=== PATIENT | male | born 1990 | race Two or more races ===

== ENCOUNTER 2019-05-19 23:06 | Emergency (ER) | payer BC ==
[~2019-05-19] VITALS: Ht 180.3 cm; Wt 79.4 kg
[2019-05-19 23:24] VITALS: BP 102/72
--- NOTE | 2019-05-19 23:24 | NUR ---
ED Nurse Note: Patient walked in to ER due to S/P fall. As per patient, he was playing basketball and hit his head really hard. No injury reported. no stated medical history. Alert and oriented x4, verbally responsive. Afebrile. Breathing even and unlabored. VSS. S/O at bedside.
--- NOTE | 2019-05-19 23:45 | NUR ---
ED Nurse Note: Went down for CT.
--- NOTE | 2019-05-20 00:01 | NUR ---
ED Nurse Note: Came back from CT.
--- NOTE | 2019-05-20 00:02 | Emergency Room Report ---
History of Present Illness General Chief Complaint: Multiple Trauma/Fall Source: Patient Present Illness HPI This is a 28-year-old male with no past medical history. He presents with chief complaint of head injury. He was playing basketball around 9:30 tonight. He said he fell and hit his head. He had no symptom and got up and continue playing. His friend said that right afterward he made a big shot but he said he does not remember anything about it. He has some tenderness to the left parietal area. No swelling. No nausea no vomiting. No fever chills but no dizziness. Came into be evaluated. Allergies: Coded Allergies: No Known Allergies (Unverified , 05/19/19) Patient History Past Medical History: see triage record, old chart reviewed Past Surgical History: none Pertinent Family History: none Social History: Denies: smoking Immunizations: other Reviewed Nursing Documentation: PMH: Agreed; PSxH: Agreed Nursing Documentation-PMH Past Medical History: No Stated History Review of Systems Eye: Denies: eye pain, blurred vision ENT: Denies: ear pain, nose congestion, throat swelling Respiratory: Denies: cough, shortness of breath Cardiovascular: Denies: chest pain, palpitations Gastrointestinal: Denies: abdominal pain, diarrhea, nausea, vomiting Musculoskeletal: Denies: back pain, joint pain Skin: Denies: rash Neurological: Denies: headache, numbness Endocrine: Denies: increased thirst, increased urine Hematologic/Lymphatic: Denies: easy bruising All Other Systems: negative except mentioned in HPI Physical Exam Vital Signs Date Time Temp Pulse Resp B/P (MAP) Pulse Ox O2 Delivery O2 Flow Rate FiO2 05/19/19 23:22 98.4 67 18 102/72 (82) 95 Room Air vitals normal Sp02 EP Interpretation: reviewed, normal General Appearance: well appearing, no apparent distress, alert Head: normocephalic, atraumatic Eyes: bilateral eye PERRL, bilateral eye EOMI ENT: hearing grossly normal, normal pharynx Neck: full range of motion, supple, no meningismus Respiratory: chest non-tender, lungs clear, normal breath sounds Cardiovascular #1: regular rate, rhythm, no murmur Gastrointestinal: normal bowel sounds, non tender, no mass, no organomegaly, no bruit, non-distended Musculoskeletal: back normal, gait/station normal, normal range of motion Psychiatric: mood/affect normal Medical Decision Making Diagnostic Impression: Primary Impression: Head injury, acute Qualified Codes: S09.90XA - Unspecified injury of head, initial encounter Additional Impression: Concussion Qualified Codes: S06.0X0A - Concussion without loss of consciousness, initial encounter ER Course Patient presents with symptoms consistent with concussion after head injury. He is asymptomatic right now. Will discharge home with concussion precaution. CT/MRI/US Diagnostic Results CT/MRI/US Diagnostic Results : Imaging Test Ordered: CT head Impression Negative per radiologist Last Vital Signs Date Time Temp Pulse Resp B/P (MAP) Pulse Ox O2 Delivery O2 Flow Rate FiO2 05/19/19 23:24 67 18 Room Air 05/19/19 23:24 98.4 102/72 95 Status: improved Disposition: HOME, SELF-CARE Condition: Stable Additional Instructions: No basketball or strenuous activity for a week. You can return to play and if you have no symptoms. Follow-up with your doctor in 7 days. Return if worse. Lawrence La MD May 20, 2019 00:02
[2019-05-20 00:12] VITALS: BP 102/72
--- NOTE | 2019-05-20 00:12 | NUR ---
ED Nurse Note: Pt cleared by ERMD for discharge. DC instructions was given and explained to pt and verbalized understanding of teachings. All medical deviecs such as ID band removed. Pt is AAO x4, ambulatory and left with all personal belongings.
--- NOTE | 2019-05-20 00:32 | Diagnostic Imaging Report ---
Indications: Head trauma Technique: Spiral acquisitions obtained through the brain. Angled axial and coronal 5 x 5 mm slices were reconstructed. Total dose length product 1379.6 mGycm. CTDI vol(s) 70.38 mGy. Dose reduction achieved using automated exposure control Comparison: None. Findings: Prominent extra-axial CSF is seen in the posterior aspect of the posterior fossa, particularly on the left. There is slight scalloping of the inner table of the underlying calvarium. No acute intracranial hemorrhage or edema, mass effect, nor midline shift. Anderson-white differentiation is normal. The ventricles and extra axial CSF spaces are otherwise unremarkable. The mastoids are clear. The sinuses are clear. The orbits are unremarkable. The calvarium is intact. Impression: Negative for acute intracranial bleed or mass effect Prominent extra-axial CSF in the posterior fossa. 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 This agrees with the preliminary interpretation provided overnight by [facility] service. The CT scanner at [facility] is accredited by the [employer] and the scans are performed using protocols designed to limit radiation exposure to as low as reasonably achievable to attain images of sufficient resolution adequate for diagnostic evaluation.
== END 2019-05-20 00:12 | disposition home or self-care (01) ==
LOC: EMR 23:59
DX: S06.0X0A Concussion without loss of consciousness, initial encounter (principal); W18.30XA Fall on same level, unspecified, initial encounter; Y93.67 Activity, basketball; Y92.9 Unspecified place or not applicable
CPT/HCPCS: 70450; 99284